=== PATIENT | female | born 1985 | race Two or more races ===

== ENCOUNTER 2017-10-16 21:37 | Emergency (ER) | payer OTHER ==
[~2017-10-16] VITALS: Ht 170.2 cm; Wt 72.6 kg
[2017-10-16] MEDS ORDERED: MULTI VITAMIN1 EACH (21:47)
== END 2017-10-16 22:56 | disposition home or self-care (01) ==
LOC: ER 21:37
DX: H65.192 Other acute nonsuppurative otitis media, left ear (principal); J02.8 Acute pharyngitis due to other specified organisms

== ENCOUNTER 2017-10-19 22:33 | Emergency (ER) | payer OTHER ==
[~2017-10-19] VITALS: Ht 170.2 cm; Wt 72.6 kg
[~2017-10-19 22:33] MED LIST: MULTI VITAMIN1 EACH
[2017-10-19] MEDS ORDERED: ORASEP SPRAY30 ML (22:51)
[2017-10-19] MEDS ORDERED: CEFUROXIME500 MG (22:52)
[2017-10-20] MEDS ORDERED: SINGULAIR 10MG10 MG PO (03:42)
[2017-10-20] MEDS ORDERED: PROVENTIL HFA6.7 GM IH (03:42)
== END 2017-10-20 03:51 | disposition home or self-care (01) ==
LOC: ER 22:33
DX: H66.93 Otitis media, unspecified, bilateral (principal); R13.10 Dysphagia, unspecified

== ENCOUNTER 2019-06-24 23:36 | Emergency (ER) | payer BC ==
[~2019-06-24] VITALS: Ht 170.2 cm; Wt 77.1 kg
[~2019-06-24 23:36] MED LIST changes: +CEFUROXIME500 MG; +ORASEP SPRAY30 ML; +PROVENTIL HFA6.7 GM IH; +SINGULAIR 10MG10 MG PO
[2019-06-24] MEDS ORDERED: PEPCID40 MG (23:57)
[2019-06-24] MEDS ORDERED: PROTONIX40 M1 (23:57)
[2019-06-24] MEDS ORDERED: GAS RELIEF125 M1 (23:58)
[2019-06-24] MEDS ORDERED: NASAL MIST126 ML (23:58)
[2019-06-25] MEDS ORDERED: KETO10TA2 PO (04:50)
== END 2019-06-25 05:07 | disposition home or self-care (01) ==
LOC: ER 23:36
DX: N83.292 Other ovarian cyst, left side (principal)

== ENCOUNTER 2020-08-10 10:31 | Outpatient (CLI) | payer BC ==
[~2020-08-10 10:31] MED LIST changes: +GAS RELIEF125 M1; +KETO10TA2 PO; +NASAL MIST126 ML; +PEPCID40 MG; +PROTONIX40 M1
== END 2020-08-10 10:44 | disposition home or self-care (01) ==
LOC: SONOGRAMA 10:31
DX: Z31.41 Encounter for fertility testing (principal)

== ENCOUNTER 2021-09-09 07:26 | Outpatient (CLI) | payer BC | END 2021-09-09 07:28 | disposition home or self-care (01) | LOC: NUCLEAR 07:26 | PROVIDERS: ATTEND Obstetrics & Gynecology | DX: I82.403 Acute embolism and thrombosis of unspecified deep veins of lower extremity, bilateral (principal) ==

== ENCOUNTER 2021-09-15 15:29 | Outpatient (CLI) | payer BC | END 2021-09-15 15:35 | disposition home or self-care (01) | LOC: LAB 15:29 | PROVIDERS: ATTEND Obstetrics & Gynecology | DX: O09.70 Supervision of high risk pregnancy due to social problems, unspecified trimester (principal) ==

== ENCOUNTER 2021-10-29 17:17 | Emergency (ER) | payer BC ==
[~2021-10-29] VITALS: Ht 170.2 cm; Wt 90.7 kg
[2021-10-29] MEDS ORDERED: MACROBID 100 M100 MG PO (20:16)
== END 2021-10-29 20:42 | disposition home or self-care (01) ==
LOC: ER 17:17
DX: B34.9 Viral infection, unspecified (principal); Z20.822 Contact with and (suspected) exposure to COVID-19; Z88.8 Allergy status to other drugs, medicaments and biological substances

== ENCOUNTER → 2022-01-09 02:38 | Outpatient (CLI) | payer BC ==
[~2022-01-09 02:38] MED LIST changes: +MACROBID 100 M100 MG PO
== END | disposition home or self-care (01) ==
LOC: NUCLEAR 09-13 06:45 → NST 02:38
PROVIDERS: ATTEND Obstetrics & Gynecology Gynecology
DX: Z34.83 Encounter for supervision of other normal pregnancy, third trimester (principal)

== ENCOUNTER 2022-02-14 16:01 | Inpatient (IN) | payer BC ==
[~2022-02-14] VITALS: Ht 170.2 cm; Wt 95.3 kg
[2022-02-14] MEDS ORDERED: LEVOXYL25 MCG PO (22:54)
[2022-02-14] MEDS ORDERED: PRENATAL TABLE1 EAC1 PO (22:55)
== END 2022-02-19 15:09 | disposition home or self-care (01) | DRG 788 ==
LOC: LDR 16:01 → OB/GYN 02-15 10:00
PROVIDERS: ADMIT Obstetrics & Gynecology Maternal & Fetal Medicine; ATTEND Obstetrics & Gynecology Maternal & Fetal Medicine
PROC: 3E0P7VZ Introduction of Hormone into Female Reproductive, Via Natural or Artificial Opening (ICD-10-PCS; 2022-02-14)
PROC: 4A1HXCZ Monitoring of Products of Conception, Cardiac Rate, External Approach (ICD-10-PCS; 2022-02-14)
PROC: 3E033VJ Introduction of Other Hormone into Peripheral Vein, Percutaneous Approach (ICD-10-PCS; 2022-02-15)
PROC: 10D00Z1 Extraction of Products of Conception, Low, Open Approach (ICD-10-PCS; principal; 2022-02-15 09:45)
DX: O61.0 Failed medical induction of labor (principal); O36.8130 Decreased fetal movements, third trimester, not applicable or unspecified; Z3A.39 39 weeks gestation of pregnancy; Z37.0 Single live birth; Z20.822 Contact with and (suspected) exposure to COVID-19